=== PATIENT | female | born 1940 | race Caucasian/White ===

== ENCOUNTER 2017-03-26 14:38 | Emergency (ER) | payer OTHER, MEDICARE ==
[~2017-03-26] VITALS: Ht 162.6 cm; Wt 99.5 kg
[2017-03-26 14:52] VITALS: BP 116/70; PULSE 76; RESP 16; O2SAT 97
--- NOTE | 2017-03-26 15:14 | ED.REPORT ---
HPI-Trauma Minor / Fall Date of Service Mar 26, 2017 ED Provider: Avtar Paris MD Patient is a 76 year old female who presents to the ED via EMS due to mechanical fall. Associated symptoms include left sided lower back pain, left hip pain, left knee pain, left shoulder and elbow pain.She denies hitting her head or losing consciousness. The patient reports that she tripped while trying to go down a stair and fell onto her left side. She states that she was able to get up and walk after the fall. Patient is currently on Plavix and ASA. Nursing Notes Stated Complaint: GROUND LEVEL FALL Chief Complaint: Multiple Trauma/Fall Nursing Notes Reviewed: Yes Allergies: Coded Allergies: acetaminophen (Verified Allergy, Severe, rash , hives, 03/26/17) adenosine (Verified Allergy, Severe, stopped breathing, 03/26/17) Penicillins (Verified Allergy, Unknown, 03/26/17) ciprofloxacin (Verified Allergy, Unknown, 03/26/17) codeine (Verified Allergy, Unknown, 03/26/17) hydromorphone (Verified Allergy, Unknown, 03/26/17) morphine (Verified Allergy, Unknown, 03/26/17) General Time Seen by MD: 15:14 Chief Complaint Fall Hx Obtained From: Patient Arrived By: Ambulance Onset Occurred: Just prior to arrival Symptom Duration: Since onset Caused by: Fall on ground Location: Elbow left Hip left Knee left Shoulder left Quality: Painful Severity: Current: Moderate Similar Sx Previous: No Past Medical History Smoking History Unknown if Ever Smoker Social History Other Social History: Good social support, Visiting locally Ambulatory Status Independent Review of Systems Musculoskeletal: Reports: Back pain, Extremity pain Skin: Reports Bruising, Denies Itching, Denies Rash Neurologic: Denies: Change LOC, Headache, Lightheaded, Numbness, Problem walking, Syncope, Weakness Complete sys rev & neg: except as marked. Physical Exam Initial Vital Signs Vital Signs (First) Date Time Temp Pulse Resp B/P Pulse Ox O2 Delivery O2 Flow Rate FiO2 03/26/17 14:52 36.8 76 16 116/70 97 Room Air Initial VS: Reviewed General/Constitutional: Awake, Alert Neck: Atraumatic, No midline vertebral tend Head / Eyes: Atraumatic, Normocephalic, PERRL, EOMI Respiratory / Chest: Atraumatic, Breath sounds NL, Breath sounds = bilat, No respiratory distress Cardiovascular: Heart rate NL, Regular rhythm, Heart sounds NL BACK: left sacral tenderness, more one left than right Upper Extremity / MS: Full range of motion, Neurologic intact, Vascular intact normal clavicle proximal humerus and shoulder joint line tenderness, no focal bony tenderness Lower Extremity / Pelvis / MS: Neurologic intact, Vascular intact bruising over the proximal tibia no external rotation of the lower extremity Skin: Color NL, No rash, Warm, Dry Neurologic: Oriented X3, Speech NL, No motor deficits, No sensory deficits Psychiatric: Affect NL, Mood NL Interpretation & Diagnostics Lab Results Interpretation Test 03/26/17 17:55 Hold Urine Received (Received) X-Ray Interpretation Xray Interpretation: IMPRESSION: No fracture. Prepatellar soft tissue swelling. Chondrocalcinosis. Dictated by: Jose Lantigua M.D. on 03/26/2017 at 16:40 Approved by: Jose Lantigua M.D. on 03/26/2017 at 16:41 X-Ray Ordered: Knee left Interpretation / Wet Read by: Interpret - Radiologist Xray Interpretation: IMPRESSION: Diffuse facet arthropathy. Mild thoracolumbar disc degeneration as above. No fracture. Dictated by: Jose Lantigua M.D. on 03/26/2017 at 16:39 Approved by: Jose Lantigua M.D. on 03/26/2017 at 16:40 Study Performed: LUMBAR SPINE X-RAY Interpretation / Wet Read by: Interpret - Radiologist Xray Interpretation: IMPRESSION: No fracture. Dictated by: Jeremiah Alonso M.D. on 03/26/2017 at 15:56 Approved by: Jeremiah Alonso M.D. on 03/26/2017 at 15:58 X-Ray Ordered: Pelvis Interpretation / Wet Read by: Interpret - ED physician Interpretation: Normal exam Re-Eval/Medical Decision Med Decision/Clinical Course 76-year-old female with a ground-level mechanical fall. No serious injury is identified, did not suffer head injury did not feel that brain imaging was indicated. Pain management little bit of a problem, the patient reported allergies or intolerance to virtually any pain medication I suggested other than Vicoprofen, ibuprofen or Toradol. She did pass a road test with a walker. Discharged home with a prescription for oral Toradol. We gave her Ultram in the ED, this caused her to have nausea and vomiting. Source of Hx: Old records Summary of Info: Patient reports being allergic to virtually all pain narcotics Re-Evaluation/Progress #1: Time of Eval: 17:14 Re-Evaluation/Progress Note: Discussed all X-ray results and plan for road test with a walker. Patient reports that she can tolerate Tramadol and would like to try that for pain. Re-Evaluation/Progress #2: Time of Eval: 18:05 Re-Evaluation/Progress Note: Patient reports that she forgot what medication she could tolerate and now is feeling "crazy" after taking the Tramadol and thinks she can actually tolerate Toradol. Discussed plan for discharge. Patient understands and agrees to plan. All questions were addressed. Re-Evaluation/Progress #3: Time of Eval: 18:22 Re-Evaluation/Progress Note: Patient is now vomiting. Plan to give Zofran. Re-Evaluation/Progress #4: Time of Eval: 18:57 Patient Status: Condition improved Re-Evaluation/Progress Note: Patient reports that her nausea is better. Plan to discharge once her ride returns. Counseled Regarding: Diagnosis, Lab results, Need for follow-up, When/why to return to ED Discharge & Departure Impression: Primary Impression: Fall Encounter type: initial encounter Qualified Code: W19.XXXA - Unspecified fall, initial encounter Additional Impressions: Knee pain Laterality: left Chronicity: acute Qualified Code: M25.562 - Pain in left knee Shoulder pain Laterality: left Chronicity: acute Qualified Code: M25.512 - Pain in left shoulder Hip pain Laterality: left Qualified Code: M25.552 - Pain in left hip Low back pain Chronicity: acute Back pain laterality: left Sciatica presence: without sciatica Qualified Code: M54.5 - Low back pain Disposition: Home Discharge Condition All VS Reviewed: Yes Condition: Stable Patient Instructions: Contusion in Adults (ED) Additional Instructions: Emergency Department evaluation included interview, examination, x-rays. No serious injury is identified although there are numerous soft tissue injuries and abrasions. Expected that you will be stiff and sore for several days. It will be helpful to apply ice to the sore areas, keep the ice wrapped in a towel and remove after 10-15 minutes, can reapply in one hour. Use Toradol as needed for pain. A prescription for a walker is provided, use this for mobility. Follow-up with primary care in about 10 days. Return to emergency department for shortness of breath headache chest pain fevers or inability to walk. Scribe Attestation Portions of this note were transcribed by Zandra Valadez. I, Dr. Paris personally performed the history, physical exam and medical decision-making; I reviewed and confirmed the accuracy of the information in the transcribed note. Signed by: Blas Bucio, 03/26/17 Avtar Paris MD Mar 26, 2017 15:14 Renetta Valadez Mar 26, 2017 15:23
--- NOTE | 2017-03-26 16:41 | DRSVH ---
PROCEDURE: X-RAY LUMBAR SPINE, 2 OR 3 VIEW INDICATIONS: ground level fall hip back knee pain TECHNIQUE: 3 views of the lumbar spine were acquired. COMPARISON: None. FINDINGS: Bones: No fracture or focal osseous destruction Anterolisthesis of L4 and L5. Diffuse facet arthropathy. Diffuse endplate spurring and sclerosis. Mil d narrowing of the T12-L1 and L1-L2 disc spaces. Remaining disc spaces preserved. Soft tissues: Overlying bowel gas pattern is normal. No suspicious soft tissue calcifications. IMPRESSION: Diffuse facet arthropathy. Mild thoracolumbar disc degeneration as above. No fracture. Dictated by: Jose Lantigua M.D. on 03/26/2017 at 16:39 Approved by: Jose Lantigua M.D. on 03/26/2017 at 16:40
--- NOTE | 2017-03-26 16:43 | DRSVH ---
PROCEDURE: X-RAY LEFT KNEE, THREE VIEWS ([id number]) INDICATIONS: ground level fall hip back knee pain TECHNIQUE: 3 views of the knee were acquired. COMPARISON: None. FINDINGS: Bones: No fractures or dislocations. No suspicious bony lesions. Chondrocalcinosis and scattered d egenerative spurring. Soft tissues: No joint effusion. No suspicious soft tissue calcifications. Prepatellar soft tissue swelling. IMPRESSION: No fracture. Prepatellar soft tissue swelling. Chondrocalcinosis. Dictated by: Jose Lantigua M.D. on 03/26/2017 at 16:40 Approved by: Jose Lantigua M.D. on 03/26/2017 at 16:41
--- NOTE | 2017-03-26 17:00 | DRSVH ---
PROCEDURE: X-RAY PELVIS, ONE OR TWO VIEWS ([id number]) INDICATIONS: ground level fall hip back knee pain TECHNIQUE: 1 view(s) of the pelvis acquired. COMPARISON: None. FINDINGS: Bones: No fractures or dislocations. No suspicious bony lesions. Degenerative changes in lumbar spi ne. Soft tissues: Visualized bowel gas pattern is normal. No suspicious soft tissue calcifications. Almonte rgical clips in the left pelvis. IMPRESSION: No fracture. Dictated by: Jeremiah Alonso M.D. on 03/26/2017 at 15:56 Approved by: Jeremiah Alonso M.D. on 03/26/2017 at 15:58
[2017-03-26] MEDS ORDERED: Ondansetron 8 mg ODT Tablet PO ONE (18:20)
[2017-03-26 19:16] VITALS: BP 110/60; PULSE 60; RESP 22; O2SAT 95
== END 2017-03-26 19:15 | disposition home or self-care (01) ==
LOC: SED 14:38 → EDBD 14:38 → SED 19:15
DX: M25.562 Pain in left knee (principal); M25.512 Pain in left shoulder; M25.552 Pain in left hip; M54.5 Low back pain; W01.0XXA Fall on same level from slipping, tripping and stumbling without subsequent striking against object, initial encounter; Y92.513 Shop (commercial) as the place of occurrence of the external cause; Y93.89 Activity, other specified; Y99.8 Other external cause status; I10 Essential (primary) hypertension; E11.9 Type 2 diabetes mellitus without complications; Z95.818 Presence of other cardiac implants and grafts; Z87.891 Personal history of nicotine dependence; Z79.02 Long term (current) use of antithrombotics/antiplatelets; Z79.82 Long term (current) use of aspirin; Z88.5 Allergy status to narcotic agent; Z88.8 Allergy status to other drugs, medicaments and biological substances; Z88.6 Allergy status to analgesic agent; Z88.0 Allergy status to penicillin; Z88.1 Allergy status to other antibiotic agents